=== PATIENT | female | born 1980 | race Caucasian/White ===

== ENCOUNTER 2018-08-28 17:26 | Emergency (ER) | payer OTHER ==
[~2018-08-28] VITALS: Ht 170.2 cm; Wt 59.9 kg
[2018-08-28 17:29] VITALS: BP 114/81
[2018-08-28] MEDS ORDERED: BACTRIM DS TAB1 EACH PO (17:45)
[2018-08-28] MEDS ORDERED: TRIAMCINOLONE A80 G2 TOP (17:45)
== END 2018-08-28 18:25 | disposition home or self-care (01) ==
LOC: ER 17:26
DX: S40.861A Insect bite (nonvenomous) of right upper arm, initial encounter (principal); L08.89 Other specified local infections of the skin and subcutaneous tissue; W57.XXXA Bitten or stung by nonvenomous insect and other nonvenomous arthropods, initial encounter; Y92.89 Other specified places as the place of occurrence of the external cause; Y93.89 Activity, other specified; Y99.8 Other external cause status